=== PATIENT | female | born 1935 | race Native Hawaiian/Other Pacific Islander ===

== ENCOUNTER 2018-08-14 11:39 | Outpatient (CLI) | payer OTHER | END 2018-08-14 12:11 | disposition short-term general hospital (02) | LOC: AMB 11:39 | DX: M25.512 Pain in left shoulder (principal); S80.212A Abrasion, left knee, initial encounter; W18.39XA Other fall on same level, initial encounter; Y92.89 Other specified places as the place of occurrence of the external cause | CPT/HCPCS: A0425; A0427 ==